=== PATIENT | male | born 1975 | race Caucasian/White ===

== ENCOUNTER → 2018-02-16 | Outpatient (CLI) | payer BC | LOC: FIMAGING 15:30 | PROVIDERS: ATTEND Family Medicine | DX: E07.9 Disorder of thyroid, unspecified (principal) ==

== ENCOUNTER → 2018-12-15 | Outpatient (CLI) | payer BC | LOC: FIMAGING 06:44 | PROVIDERS: ATTEND Family Medicine | DX: K76.89 Other specified diseases of liver (principal) ==

== ENCOUNTER → 2019-04-12 | Outpatient (CLI) | payer BC | LOC: FIMAGING 08:04 ==